=== PATIENT | male | born 1975 | race Caucasian/White ===

== ENCOUNTER 2016-08-19 21:55 | Emergency (ER) | payer MEDICAID ==
[~2016-08-19] VITALS: Ht 177.8 cm; Wt 72.6 kg
[~2016-08-19 21:55] MED LIST: CYCL-181; GABA1POW27 PO; LEVE500T22 PO; NAPR-607; NOR5T; PHEN-250 PO
[2016-08-20 03:01] LABS: Basophils # (auto) 0 uL; Basophils % (auto) 0.2 % (0.0-2.0); Eosinophils # (auto) 0.1 uL; Hematocrit 39.3 % (41.0-53.0); Hemoglobin 12.8 g/dL (13.5-17.5); Lymphocytes # (auto) 1.3 uL; Lymphocytes % (auto) 15.8 % (10.0-50.0); Mean Corpuscular Hemoglobin 27.1 pg (28.0-32.0); Mean Corpuscular Hgb Conc. 32.6 g/dL (32.0-36.0); Mean Corpuscular Volume 83.2 fL (80.0-100.0); Mean Platelet Volume 8.3 fL (7.4-10.4); Monocytes # (auto) 0.8 uL; Monocytes % (auto) 10.2 % (0.0-12.0); Neutrophils # (auto) 5.8 uL; Neutrophils % (auto) 72.8 % (37.0-80.0); Platelet Count (auto) 255 10^3/uL (140-450); Red Cell Distribution Width 15.7 % (11.6-16.0); White Blood Cell 7.9 10^3/uL (4.4-10.8)
[2016-08-20 03:14] LABS: BUN/Creatinine Ratio 16.7; Calcium 8.2 mg/dL (8.5-10.1); Potassium 3.4 mmol/L (3.5-5.1)
[2016-08-20 03:16] LABS: Bilirubin, Total 0.4 mg/dL (0.2-1.0)
[2016-08-20] MEDS ORDERED: KETOROLAC TROMETH 30 MG/ML 1ML VIAL IV ONE (03:45)
[2016-08-20] MEDS ORDERED: HYDROcodone-ACET 7.5/325MG TAB PO ONE (03:45)
[2016-08-20 04:15] VITALS: BP 125/76
[2016-08-20 04:20] LABS: Urine Bilirubin Negative (Negative); Urine Color Yellow (Yellow); Urine Glucose Normal (Normal); Urine Hyaline Cast FEW /lpf (0 - 2); Urine Ketone Negative (Negative); Urine Mucus FEW (None Seen); Urine Nitrite Negative (Negative); Urine RBC 140 /hpf (0 - 3); Urine pH 5.5 (5.0-8.0)
[2016-08-20 04:22] LABS: Urine Blood 2+ /uL (Negative)
== END 2016-08-20 04:19 | disposition home or self-care (01) ==
LOC: ER 21:55 → EDBD 21:55 → ER 08-20 04:19
DX: N20.1 Calculus of ureter (principal); Z88.0 Allergy status to penicillin; Z88.8 Allergy status to other drugs, medicaments and biological substances; J45.909 Unspecified asthma, uncomplicated; F17.210 Nicotine dependence, cigarettes, uncomplicated; F12.10 Cannabis abuse, uncomplicated; F15.10 Other stimulant abuse, uncomplicated; Z59.0 Homelessness
CPT/HCPCS: 36415; 74176; 80053; 80307; 81001; 82150; 83690; 85025; 96374; 99285; J1885